=== PATIENT | female | born 1960 | race Caucasian/White ===

== ENCOUNTER 2020-08-25 15:37 | Inpatient (IN) | payer SELFPAY ==
[2020-08-25] MEDS ORDERED: GLYCOPYRROLATE 1 MG PO PRN (17:42)
[2020-08-25] MEDS ORDERED: Albuterol HFA 18 Gm Inhaler **OWN MED INH PRN (17:42)
[2020-08-25] MEDS ORDERED: Aluminum Hydroxide/Magnesium Hydroxide/Simethicone Susp 30 ML Cup PO PRN (17:42)
[2020-08-25] MEDS ORDERED: Simethicone 80 MG Tab.Chew PO PRN (17:42)
--- NOTE | 2020-08-25 17:48 | PCM.HP.2 ---
H&P History of Present Illness - General Date of Service: 08/25/20 Admit Problem/Dx: Admission Diagnosis/Problem Admission Diagnosis/Problem Liver mass - History of Present Illness Initial Comments - Free Text/Narative: Zenaida is a 60yoF with a PMH of MDD/EMIL, tobacco use disorder, chronic pain syndromes who is being admitted under comfort measures/hospice care. She was very recently seen for outpatient evaluation of right upper quadrant pain and workup did reveal a very large liver mass as well as multiple metastases. The patient deferred any diagnostic/interventional workup of this and instead preferred to pursue hospice care. She has been doing fairly well at home over the last couple weeks but over the last 2 days has developed increased pain as well as significant lower extremity swelling that has limited her ability to carry out her activities of daily living. I did receive a call from the hospice nurse earlier this morning asking about potential swing bed admission while we await's further plan of care in regard to placement. At this time Zenaida notes that the abdominal pain as well as the back pain are the worse. She does have some sharp stabbing pains in her lower extremities as well. Swelling of the bilateral lower extremities is new for her. She denies any itching at this time. Eating is a continued problem as she is able to take and very very small portions due to early satiety and feelings of gaseousness/nauseousness. She has been doing very well at keeping up on her fluids. She is quite concerned that this may be the turn for the worse and that this was earlier than anticipated although she is at ease with this thought. She is concerned that her siblings are very much against her decisions. She has 2 of them coming to see her at this time. - Related Data Allergies/Adverse Reactions: Allergies Allergy/AdvReac Type Severity Reaction Status Date / Time cat dander Allergy Hives Verified 08/25/20 14:54 cephalexin Allergy Facial Verified 08/25/20 14:54 Swelling metaxalone Allergy Hives Verified 08/25/20 14:54 shellfish derived Allergy Hives Verified 08/25/20 14:54 citalopram AdvReac Other Verified 08/25/20 14:56 iodine AdvReac Other Verified 08/25/20 14:56 venlafaxine AdvReac Lightheaded Verified 08/25/20 14:56 ness insecticides & pesticides Allergy Hives Uncoded 08/25/20 14:54 Home Medications: Home Meds Acetaminophen 500 mg PO Q4H PRN MDD 2000 grams per day 08/25/20 [History] Albuterol Sulfate [Albuterol Sulfate Hfa] 2 inh PO Q4H PRN 08/25/20 [History] Cetirizine HCl [Aller-Albino] 10 mg PO BEDTIME 08/25/20 [History] Clobetasol [Clobetasol Propionate 0.05%] 1 applic TOP BID 08/25/20 [History] Docusate Sodium/Sennosides [Senna Plus] 1 tab PO TID 08/25/20 [History] Glycopyrrolate 1 mg PO Q8H PRN 08/25/20 [History] HYDROmorphone [Dilaudid] 1 mg PO Q2H PRN 08/25/20 [History] HYDROmorphone [Dilaudid] 2 mg PO Q4H 08/25/20 [History] LORazepam [Ativan] 0.25 mg PO Q4H PRN 08/25/20 [History] Lidocaine 1 patch TOP Q12H 08/25/20 [History] Mag Hydrox/Aluminum Hyd/Simeth [Antacid Liquid] 10 ml PO ASDIRECTED PRN 08/25/20 [History] Melatonin 5 mg PO BEDTIME 08/25/20 [History] Omeprazole 20 mg PO BID 08/25/20 [History] Ondansetron [Zofran ODT] 4 mg PO QID PRN 08/25/20 [History] Simethicone [Gas-X] 125 mg PO ASDIRECTED PRN 08/25/20 [History] Zolpidem Tartrate [Ambien] 2.5 mg PO BEDTIME PRN 08/25/20 [History] dexAMETHasone [Decadron] 4 mg PO BID@08,14 08/25/20 [History] H&P Review of Systems - Review of Systems: Review Of Systems: See Below General: Reports: Weakness, Fatigue HEENT: Reports: Eye Pain Pulmonary: Reports: No Symptoms Cardiovascular: Reports: No Symptoms Gastrointestinal: Reports: Abdominal Pain, Decreased Appetite, Nausea Genitourinary: Reports: No Symptoms Musculoskeletal: Reports: Back Pain, Leg Pain, Joint Pain, Muscle Pain Skin: Reports: No Symptoms Psychiatric: Reports: No Symptoms Neurological: Reports: No Symptoms Hematologic/Lymphatic: Reports: No Symptoms Exam - Exam Exam: See Below - Vital Signs Vital Signs: Last Vital Signs Temp 98.8 F 08/25/20 16:20 Pulse 62 08/25/20 16:20 Resp BP 179/107 H 08/25/20 16:20 Pulse Ox 95 08/25/20 16:20 - Exam General: Alert, Oriented, Cooperative, Mild Distress HEENT: Conjunctiva Clear, EOMI, Mucosa Moist & [place] Neck: Supple, Trachea Midline Lungs: Normal Respiratory Effort Cardiovascular: Regular Rate, Regular Rhythm GI/Abdominal Exam: Tender Extremities: Pedal Edema (1+ to the bilateral LE) Skin: Warm, Dry, Intact Neuro Extensive - Mental Status: Alert, Oriented x3, Normal Mood/Affect Neuro Extensive - Motor, Sensory, Reflexes: CN II-XII Intact, Other (use of a walker for ambulation) Psychiatric: Alert, Normal Affect, Normal Mood Sepsis Event Note - Focused Exam Vital Signs: Vital Signs Temp Pulse BP Pulse Ox 08/25/20 16:20 98.8 F 62 179/107 H 95 *Q Meaningful Use (ADM) - VTE *Q VTE Anticoagulation Contraindications: Med/TX Not Indicated/Need - Problem List (1) Liver mass SNOMED Code(s): 663673552 ICD Code: R16.0 - HEPATOMEGALY, NOT ELSEWHERE CLASSIFIED Status: Acute Current Visit: Yes (2) Weakness SNOMED Code(s): 02507171 ICD Code: R53.1 - WEAKNESS Status: Acute Current Visit: Yes (3) End of life care SNOMED Code(s): 570398060, 457890711 ICD Code: Z51.5 - ENCOUNTER FOR PALLIATIVE CARE Status: Acute Current Visit: Yes Problem List Initiated/Reviewed/Updated: Yes Orders Last 24hrs: Active Orders 24 hr Category Date Time Status Patient Status [ADT] Routine ADT 08/25/20 17:38 Ordered May Shower [RC] ASDIRECTED Care 08/25/20 17:38 Ordered Oxygen Therapy [RC] PRN Care 08/25/20 17:38 Ordered Up ad Jerri [RC] ASDIRECTED Care 08/25/20 17:38 Ordered Regular Diet [DIET] Diet 08/25/20 Dinner Ordered Acetaminophen [Acetaminophen] Med 08/25/20 17:42 Ordered 500 mg PO Q4H PRN Albuterol Sulfate Med 08/25/20 17:42 Ordered 2 inh PO Q4H PRN Cetirizine HCl [Aller-Albino] Med 08/25/20 20:00 Ordered 10 mg PO BEDTIME Clobetasol [Clobetasol 0.05%] Med 08/25/20 20:00 Ordered 1 applic TOP BID Docusate Sodium/Sennosides [Senna Plus] Med 08/25/20 20:00 Ordered 1 tab PO TID Glycopyrrolate [Glycopyrrolate] Med 08/25/20 17:42 Ordered 1 mg PO Q8H PRN HYDROmorphone [Dilaudid] Med 08/25/20 17:42 Ordered 1 mg PO Q2H PRN HYDROmorphone [Dilaudid] Med 08/25/20 17:45 Ordered 2 mg PO Q4H LORazepam [Ativan] Med 08/25/20 17:42 Ordered 0.25 mg PO Q4H PRN Lidocaine [Lidocaine] Med 08/25/20 17:45 Ordered 1 patch TOP Q12H Mag Hydrox/Aluminum Hyd/Simeth [Antacid Liquid] Med 08/25/20 17:42 Ordered 10 ml PO ASDIRECTED PRN Melatonin [Melatonin] Med 08/25/20 20:00 Ordered 5 mg PO BEDTIME Omeprazole [Omeprazole] Med 08/25/20 20:00 Ordered 20 mg PO BID Ondansetron [Zofran ODT] Med 08/25/20 17:42 Ordered 4 mg PO QID PRN Simethicone [Gas-X] Med 08/25/20 17:42 Ordered 125 mg PO ASDIRECTED PRN Zolpidem Tartrate [Ambien] Med 08/25/20 17:42 Ordered 2.5 mg PO BEDTIME PRN dexAMETHasone [Decadron] Med 08/26/20 08:00 Ordered 4 mg PO BID@08,14 Anticoagulation Contraindications VTE [AST] Per Unit Oth 08/25/20 17:38 Ordered Routine Resuscitation Status Routine Resus Stat 08/25/20 17:38 Ordered Medication Orders Non-Formulary Medication (Acetaminophen [Acetaminophen]) 500 mg PO Q4H PRN PRN Reason: Pain Non-Formulary Medication (Albuterol Sulfate) 2 inh PO Q4H PRN PRN Reason: asthma Non-Formulary Medication (Cetirizine Hcl [Aller-Albino]) 10 mg PO BEDTIME [place] Non-Formulary Medication (Clobetasol [Clobetasol 0.05%]) 1 applic TOP BID [place] Non-Formulary Medication (Dexamethasone [Decadron]) 4 mg PO BID@08,14 [place] Non-Formulary Medication (Docusate Sodium/Sennosides [Senna Plus]) 1 tab PO TID [place] Non-Formulary Medication (Glycopyrrolate [Glycopyrrolate]) 1 mg PO Q8H PRN PRN Reason: secretions Non-Formulary Medication (Hydromorphone [Dilaudid]) 1 mg PO Q2H PRN PRN Reason: Pain Non-Formulary Medication (Hydromorphone [Dilaudid]) 2 mg PO Q4H KR[place] Non-Formulary Medication (Lidocaine [Lidocaine]) 1 patch TOP Q12H [place] Non-Formulary Medication (Lorazepam [Ativan]) 0.25 mg PO Q4H PRN PRN Reason: Anxiety Non-Formulary Medication (Mag Hydrox/Aluminum Hyd/Simeth [Antacid Liquid]) 10 ml PO ASDIRECTED PRN PRN Reason: GERD Non-Formulary Medication (Melatonin [Melatonin]) 5 mg PO BEDTIME [place] Non-Formulary Medication (Omeprazole [Omeprazole]) 20 mg PO BID [place] Non-Formulary Medication (Ondansetron [Zofran Odt]) 4 mg PO QID PRN PRN Reason: Nausea Non-Formulary Medication (Simethicone [Gas-X]) 125 mg PO ASDIRECTED PRN PRN Reason: GERD Non-Formulary Medication (Zolpidem Tartrate [Ambien]) 2.5 mg PO BEDTIME PRN PRN Reason: Sleep Assessment/Plan Comment:: Zenaida is a 60yoF who is admitted for ongoing cares in the setting of hospice care for a liver mass. We will continue hospice orders, if needed will escalate pain medication. Anticipate long-term placement for ongoing assistance with ADL's given sudden decline in status. Diet: regular as tolerated DVT: no prophylaxis CODE: DNR/DNI/Comfort Disposition: will plan to coordinate care with hospice in regards to ongoing t reatment plan. - Mortality Measure Prognosis:: Poor
[2020-08-25] MEDS: Melatonin 3 MG Tab PO SCH (19:49)
[2020-08-25] MEDS: Loratadine 10 MG Tab PO SCH (19:50)
[2020-08-25] MEDS: HYDROMORPHONE 2 MG PO SCH ×3 (19:52→23:55)
[2020-08-25] MEDS: Omeprazole 20 MG Cap.CR **OWN MED PO SCH (19:55)
[2020-08-26] MEDS: HYDROMORPHONE 2 MG PO SCH ×6 (03:57→23:53)
[2020-08-26] MEDS: HYDROMORPHONE 2 MG PO PRN ×2 (06:03→15:22)
[2020-08-26] MEDS: Omeprazole 20 MG Cap.CR **OWN MED PO SCH ×2 (06:04→17:52)
[2020-08-26] MEDS: DEXAMETHASONE 4 MG PO SCH ×2 (08:17→15:22)
[2020-08-26] MEDS: LIDOCAINE 4% TOP SCH ×2 (09:02→19:52)
[2020-08-26] MEDS: Loratadine 10 MG Tab PO SCH (19:47)
[2020-08-26] MEDS: Melatonin 3 MG Tab PO SCH (19:47)
[2020-08-26] MEDS ORDERED: Clobetasol 0.05% Crm 30 GM Tube TOP SCH (20:00)
[2020-08-27] MEDS: HYDROMORPHONE 2 MG PO SCH ×6 (03:38→23:15)
[2020-08-27] MEDS: HYDROMORPHONE 2 MG PO PRN ×2 (06:03→12:26)
[2020-08-27] MEDS: Omeprazole 20 MG Cap.CR **OWN MED PO SCH ×2 (06:10→17:13)
[2020-08-27] MEDS: LIDOCAINE 4% TOP SCH ×2 (07:42→20:06)
[2020-08-27] MEDS: DEXAMETHASONE 4 MG PO SCH ×2 (08:45→15:50)
[2020-08-27] MEDS: Loratadine 10 MG Tab PO SCH (20:06)
[2020-08-27] MEDS: Melatonin 3 MG Tab PO SCH (20:06)
[2020-08-28] MEDS: HYDROMORPHONE 2 MG PO PRN ×3 (01:50→22:53)
[2020-08-28] MEDS: HYDROMORPHONE 2 MG PO SCH ×5 (04:16→20:09)
[2020-08-28] MEDS: Omeprazole 20 MG Cap.CR **OWN MED PO SCH ×2 (06:43→16:53)
[2020-08-28] MEDS: DEXAMETHASONE 4 MG PO SCH ×2 (08:03→16:50)
[2020-08-28] MEDS: Lidocaine 4% 1 each Patch TOP SCH ×2 (08:04→20:08)
[2020-08-28] MEDS: Loratadine 10 MG Tab PO SCH (20:05)
[2020-08-28] MEDS: Melatonin 3 MG Tab PO SCH (20:05)
[2020-08-28] MEDS: ZOLPIDEM 5 MG PO PRN (20:47)
[2020-08-29] MEDS: HYDROMORPHONE 2 MG PO SCH ×7 (00:32→23:28)
[2020-08-29] MEDS: Omeprazole 20 MG Cap.CR **OWN MED PO SCH ×2 (06:27→16:03)
[2020-08-29] MEDS: Lidocaine 4% 1 each Patch TOP SCH ×2 (07:37→19:49)
[2020-08-29] MEDS: DEXAMETHASONE 4 MG PO SCH ×2 (07:38→13:00)
[2020-08-29] MEDS: HYDROMORPHONE 2 MG PO PRN (12:50)
[2020-08-29] MEDS: Loratadine 10 MG Tab PO SCH (19:49)
[2020-08-29] MEDS: Melatonin 3 MG Tab PO SCH (19:49)
[2020-08-29] MEDS: ZOLPIDEM 5 MG PO PRN (23:28)
[2020-08-30] MEDS: HYDROMORPHONE 2 MG PO PRN ×2 (02:16→14:00)
[2020-08-30] MEDS: HYDROMORPHONE 2 MG PO SCH ×6 (04:34→23:29)
[2020-08-30] MEDS: Omeprazole 20 MG Cap.CR **OWN MED PO SCH ×2 (06:55→17:35)
[2020-08-30] MEDS: Lidocaine 4% 1 each Patch TOP SCH ×2 (07:54→19:35)
[2020-08-30] MEDS: DEXAMETHASONE 4 MG PO SCH ×2 (07:54→14:01)
[2020-08-30] MEDS: Melatonin 3 MG Tab PO SCH (19:36)
[2020-08-30] MEDS: Loratadine 10 MG Tab PO SCH (19:36)
[2020-08-30] MEDS: ZOLPIDEM 5 MG PO PRN (23:29)
[2020-08-31] MEDS: HYDROMORPHONE 2 MG PO SCH ×6 (03:43→23:38)
[2020-08-31] MEDS: Omeprazole 20 MG Cap.CR **OWN MED PO SCH ×2 (06:12→16:25)
[2020-08-31] MEDS: HYDROMORPHONE 2 MG PO PRN (06:12)
[2020-08-31] MEDS: DEXAMETHASONE 4 MG PO SCH ×2 (09:16→17:02)
[2020-08-31] MEDS: Lidocaine 4% 1 each Patch TOP SCH ×2 (13:06→20:06)
[2020-08-31] MEDS: Loratadine 10 MG Tab PO SCH (20:07)
[2020-08-31] MEDS: Melatonin 3 MG Tab PO SCH (20:07)
[2020-08-31] MEDS: ZOLPIDEM 5 MG PO PRN (23:37)
[2020-09-01] MEDS: HYDROMORPHONE 2 MG PO PRN ×2 (02:01→06:08)
[2020-09-01] MEDS: HYDROMORPHONE 2 MG PO SCH ×6 (04:11→23:11)
[2020-09-01] MEDS: Omeprazole 20 MG Cap.CR PO SCH ×2 (06:07→16:12)
[2020-09-01] MEDS: DEXAMETHASONE 4 MG PO SCH ×2 (09:26→14:34)
[2020-09-01] MEDS: Lidocaine 4% 1 each Patch TOP SCH ×2 (09:27→19:46)
[2020-09-01] MEDS: Ondansetron 4 MG Tab.DIS **OWN MED PO PRN (18:37)
[2020-09-01] MEDS: ZOLPIDEM 5 MG PO PRN (19:45)
[2020-09-01] MEDS: Melatonin 3 MG Tab PO SCH (19:45)
[2020-09-01] MEDS: Loratadine 10 MG Tab PO SCH (19:46)
[2020-09-02] MEDS: HYDROMORPHONE 2 MG PO SCH ×6 (03:11→23:07)
[2020-09-02] MEDS: HYDROMORPHONE 2 MG PO PRN ×2 (06:03→09:21)
[2020-09-02] MEDS: LORazepam 0.5 MG Tab **OWN MED PO PRN ×2 (06:03→15:29)
[2020-09-02] MEDS: Omeprazole 20 MG Cap.CR PO SCH ×2 (06:03→16:31)
[2020-09-02] MEDS: DEXAMETHASONE 4 MG PO SCH ×2 (07:37→13:51)
[2020-09-02] MEDS: Lidocaine 4% 1 each Patch TOP SCH ×2 (07:38→20:52)
[2020-09-02] MEDS: Ondansetron 4 MG Tab.DIS **OWN MED PO PRN ×2 (09:21→13:50)
[2020-09-02] MEDS: Loratadine 10 MG Tab PO SCH (20:51)
[2020-09-02] MEDS: Melatonin 3 MG Tab PO SCH (20:51)
[2020-09-03] MEDS: HYDROMORPHONE 2 MG PO SCH ×6 (03:45→23:57)
[2020-09-03] MEDS: HYDROMORPHONE 2 MG PO PRN (06:07)
[2020-09-03] MEDS: Omeprazole 20 MG Cap.CR PO SCH ×2 (06:07→16:23)
[2020-09-03] MEDS: DEXAMETHASONE 4 MG PO SCH ×2 (08:33→13:26)
[2020-09-03] MEDS: Lidocaine 4% 1 each Patch TOP SCH ×2 (08:34→20:09)
[2020-09-03] MEDS: LORazepam 0.5 MG Tab **OWN MED PO PRN (13:21)
[2020-09-03] MEDS: Ondansetron 4 MG Tab.DIS **OWN MED PO PRN (13:21)
[2020-09-03] MEDS: Loratadine 10 MG Tab PO SCH (20:07)
[2020-09-03] MEDS: Melatonin 3 MG Tab PO SCH (20:07)
[2020-09-04] MEDS: Acetaminophen 500 MG Tab PO PRN (02:55)
[2020-09-04] MEDS: HYDROMORPHONE 2 MG PO PRN (02:56)
[2020-09-04] MEDS: HYDROMORPHONE 2 MG PO SCH ×5 (04:42→20:22)
[2020-09-04] MEDS: Omeprazole 20 MG Cap.CR PO SCH ×2 (06:35→17:20)
[2020-09-04] MEDS: Lidocaine 4% 1 each Patch TOP SCH ×2 (08:56→20:26)
[2020-09-04] MEDS: DEXAMETHASONE 4 MG PO SCH ×2 (08:59→14:14)
[2020-09-04] MEDS: Ondansetron 4 MG Tab.DIS **OWN MED PO PRN (10:48)
[2020-09-04] MEDS: Loratadine 10 MG Tab PO SCH (20:25)
[2020-09-04] MEDS: Melatonin 3 MG Tab PO SCH (20:26)
[2020-09-05] MEDS: HYDROMORPHONE 2 MG PO SCH ×7 (00:07→23:25)
[2020-09-05] MEDS: ZOLPIDEM 5 MG PO PRN ×2 (00:07→23:25)
[2020-09-05] MEDS: Acetaminophen 500 MG Tab PO PRN ×3 (04:02→23:28)
[2020-09-05] MEDS: Omeprazole 20 MG Cap.CR PO SCH ×2 (06:14→16:51)
[2020-09-05] MEDS: DEXAMETHASONE 4 MG PO SCH ×2 (08:34→14:29)
[2020-09-05] MEDS: Lidocaine 4% 1 each Patch TOP SCH ×2 (08:35→19:16)
[2020-09-05] MEDS: Melatonin 3 MG Tab PO SCH (19:19)
[2020-09-05] MEDS: Loratadine 10 MG Tab PO SCH (19:19)
[2020-09-06] MEDS: HYDROMORPHONE 2 MG PO SCH ×5 (03:48→20:34)
[2020-09-06] MEDS: Omeprazole 20 MG Cap.CR PO SCH ×2 (06:29→17:14)
[2020-09-06] MEDS: Lidocaine 4% 1 each Patch TOP SCH ×2 (07:56→20:37)
[2020-09-06] MEDS: DEXAMETHASONE 4 MG PO SCH ×2 (07:58→15:05)
[2020-09-06] MEDS: LORazepam 0.5 MG Tab **OWN MED PO PRN (12:29)
[2020-09-06] MEDS: Loratadine 10 MG Tab PO SCH (20:35)
[2020-09-06] MEDS: Melatonin 3 MG Tab PO SCH (20:35)
[2020-09-06] MEDS: Acetaminophen 500 MG Tab PO PRN (20:39)
[2020-09-07] MEDS: HYDROMORPHONE 2 MG PO SCH ×6 (00:10→19:46)
[2020-09-07] MEDS: Omeprazole 20 MG Cap.CR PO SCH ×2 (06:32→18:09)
[2020-09-07] MEDS: Lidocaine 4% 1 each Patch TOP SCH ×2 (08:36→19:47)
[2020-09-07] MEDS: DEXAMETHASONE 4 MG PO SCH ×2 (08:37→15:37)
[2020-09-07] MEDS: LORazepam 0.5 MG Tab **OWN MED PO PRN (12:37)
[2020-09-07] MEDS: Melatonin 3 MG Tab PO SCH (19:49)
[2020-09-07] MEDS: Loratadine 10 MG Tab PO SCH (19:49)
[2020-09-08] MEDS: ZOLPIDEM 5 MG PO PRN (01:22)
[2020-09-08] MEDS: HYDROMORPHONE 2 MG PO SCH ×6 (01:22→20:25)
[2020-09-08] MEDS: Omeprazole 20 MG Cap.CR PO SCH ×2 (06:38→16:42)
[2020-09-08] MEDS: HYDROMORPHONE 2 MG PO PRN ×3 (06:39→18:50)
[2020-09-08] MEDS: DEXAMETHASONE 4 MG PO SCH ×2 (07:49→13:09)
[2020-09-08] MEDS: Lidocaine 4% 1 each Patch TOP SCH (07:51)
[2020-09-08] MEDS: LORazepam 0.5 MG Tab **OWN MED PO PRN (18:50)
[2020-09-08] MEDS: Loratadine 10 MG Tab PO SCH (20:27)
[2020-09-08] MEDS: Melatonin 3 MG Tab PO SCH (20:27)
[2020-09-09] MEDS: Lidocaine 4% 1 each Patch TOP SCH ×3 (01:10→20:19)
[2020-09-09] MEDS: HYDROMORPHONE 2 MG PO SCH ×7 (03:06→21:27)
[2020-09-09] MEDS: Omeprazole 20 MG Cap.CR PO SCH ×2 (06:34→18:58)
[2020-09-09] MEDS: DEXAMETHASONE 4 MG PO SCH ×2 (08:57→14:58)
[2020-09-09] MEDS: HYDROMORPHONE 2 MG PO PRN (14:57)
[2020-09-09] MEDS: LORazepam 0.5 MG Tab **OWN MED PO PRN (15:00)
[2020-09-09] MEDS ORDERED: HYDROmorphone 2 MG Tab PO SCH (17:30)
[2020-09-09] MEDS: Melatonin 3 MG Tab PO SCH (20:19)
[2020-09-09] MEDS: Loratadine 10 MG Tab PO SCH (20:19)
[2020-09-10] MEDS: HYDROMORPHONE 2 MG PO SCH ×7 (01:19→23:36)
[2020-09-10] MEDS: Omeprazole 20 MG Cap.CR PO SCH ×2 (06:25→20:24)
[2020-09-10] MEDS: LORazepam 0.5 MG Tab **OWN MED PO PRN ×3 (09:08→23:35)
[2020-09-10] MEDS: DEXAMETHASONE 4 MG PO SCH ×2 (09:08→18:24)
[2020-09-10] MEDS: Lidocaine 4% 1 each Patch TOP SCH ×2 (10:21→19:38)
[2020-09-10] MEDS: Melatonin 3 MG Tab PO SCH (19:38)
[2020-09-10] MEDS: Loratadine 10 MG Tab PO SCH (19:38)
[2020-09-11] MEDS: HYDROMORPHONE 2 MG PO SCH ×6 (03:58→23:33)
[2020-09-11] MEDS: Omeprazole 20 MG Cap.CR PO SCH ×2 (06:48→16:08)
[2020-09-11] MEDS: HYDROMORPHONE 2 MG PO PRN (06:50)
[2020-09-11] MEDS: Lidocaine 4% 1 each Patch TOP SCH ×2 (07:52→20:39)
[2020-09-11] MEDS: DEXAMETHASONE 4 MG PO SCH ×2 (07:53→16:08)
[2020-09-11] MEDS: Melatonin 3 MG Tab PO SCH (20:29)
[2020-09-11] MEDS: Loratadine 10 MG Tab PO SCH (20:30)
[2020-09-11] MEDS: ZOLPIDEM 5 MG PO PRN (23:33)
[2020-09-12] MEDS: HYDROMORPHONE 2 MG PO SCH ×5 (04:44→20:01)
[2020-09-12] MEDS: Omeprazole 20 MG Cap.CR PO SCH ×4 (07:32→16:08)
[2020-09-12] MEDS: Lidocaine 4% 1 each Patch TOP SCH ×2 (08:37→20:03)
[2020-09-12] MEDS: DEXAMETHASONE 4 MG PO SCH ×2 (08:37→16:05)
[2020-09-12] MEDS: HYDROMORPHONE 2 MG PO PRN ×3 (10:53→18:34)
[2020-09-12] MEDS: LORazepam 0.5 MG Tab **OWN MED PO PRN ×2 (10:53→16:05)
[2020-09-12] MEDS: Melatonin 3 MG Tab PO SCH (19:59)
[2020-09-12] MEDS: Loratadine 10 MG Tab PO SCH (19:59)
[2020-09-12] MEDS: LORazepam 0.5 MG Tab **OWN MED PO SCH (20:01)
[2020-09-13] MEDS: HYDROMORPHONE 2 MG PO SCH ×5 (00:07→15:40)
[2020-09-13] MEDS: LORazepam 0.5 MG Tab **OWN MED PO SCH ×4 (00:07→12:22)
[2020-09-13] MEDS: HYDROMORPHONE 2 MG PO PRN ×4 (02:40→17:02)
[2020-09-13] MEDS: LORazepam 0.5 MG Tab **OWN MED PO PRN ×3 (02:40→14:31)
[2020-09-13] MEDS: Lidocaine 4% 1 each Patch TOP SCH (08:10)
[2020-09-13] MEDS: Omeprazole 20 MG Cap.CR PO SCH ×2 (08:10→16:46)
[2020-09-13] MEDS: DEXAMETHASONE 4 MG PO SCH ×2 (08:10→15:40)
[2020-09-13] MEDS ORDERED: LORazepam 0.5 MG Tab PO PRN (15:02)
[2020-09-13] MEDS ORDERED: LORazepam 0.5 MG Tab PO SCH (16:00)
[2020-09-13] MEDS ORDERED: HYDROmorphone 2 MG Tab PRN (19:45)
[2020-09-13] MEDS ORDERED: LORazepam 0.5 MG Tab PRN (19:45)
[2020-09-13] MEDS ORDERED: HYDROmorphone 2 MG Tab SCH (20:00)
[2020-09-13] MEDS: HYDROMORPHONE 2 MG SCH (20:45)
[2020-09-13] MEDS: ZOLPIDEM 5 MG PO PRN (20:46)
[2020-09-13] MEDS ORDERED: HYDROMORPHONE 2 MG PRN (20:46)
[2020-09-13] MEDS: Melatonin 3 MG Tab PO SCH (20:47)
[2020-09-13] MEDS: LORazepam 0.5 MG Tab SCH (20:48)
[2020-09-14] MEDS ORDERED: Acetaminophen 500 MG Tab PRN (00:19)
[2020-09-14] MEDS ORDERED: Zolpidem 5 MG Tab PRN (00:25)
[2020-09-14] MEDS ORDERED: Simethicone 80 MG Tab.Chew PRN (00:31)
[2020-09-14] MEDS ORDERED: Ondansetron 4 MG Tab.DIS PRN (00:32)
[2020-09-14] MEDS: HYDROMORPHONE 2 MG SCH ×6 (04:07→19:56)
[2020-09-14] MEDS: LORazepam 0.5 MG Tab SCH ×6 (04:08→19:56)
[2020-09-14] MEDS: Dexamethasone 4 MG Tab SCH ×2 (08:17→15:57)
[2020-09-14] MEDS: Glycopyrrolate 1 MG Tab PRN (15:57)
[2020-09-14] MEDS ORDERED: Melatonin 3 MG Tab SCH (20:00)
[2020-09-15] MEDS: HYDROMORPHONE 2 MG SCH ×2 (00:17→06:02)
[2020-09-15] MEDS: Glycopyrrolate 1 MG Tab PRN (00:18)
[2020-09-15] MEDS: LORazepam 0.5 MG Tab SCH ×2 (00:18→06:02)
--- NOTE | 2020-09-25 11:34 | PCM.DCSUM1 ---
Discharge Summary - Hospital Course Free Text/Narrative:: Zenaida is a 60yoF with a PMH of MDD/EMIL, tobacco use disorder, chronic pain syndromes who was admitted on 08/25/20 under comfort measures/hospice care in the setting of a large liver lesion. She deferred any diagnostic/interventional workup of this and instead preferred to pursue hospice care. She has been doing fairly well at home initially but due to increased pain and weakness was admitted for ongoing cares in conjunction with hospice. She on 09/15/20. - Discharge Data Discharge Date: 09/15/20 Discharge Disposition: 20 Condition: - Referral to Home Health Primary Care Physician: Nimo Loco MD - Discharge Diagnosis/Problem(s) (1) Liver mass SNOMED Code(s): 640627401 ICD Code: R16.0 - HEPATOMEGALY, NOT ELSEWHERE CLASSIFIED Status: Acute (2) Weakness SNOMED Code(s): 17822896 ICD Code: R53.1 - WEAKNESS Status: Acute (3) End of life care SNOMED Code(s): 646101272, 231957698 ICD Code: Z51.5 - ENCOUNTER FOR PALLIATIVE CARE Status: Acute - Discharge Plan Home Medications: Home Meds Acetaminophen 500 mg PO Q4H PRN MDD 2000 grams per day 08/25/20 [History] Albuterol Sulfate [Albuterol Sulfate Hfa] 2 inh PO Q4H PRN 08/25/20 [History] Cetirizine HCl [Aller-Albino] 10 mg PO BEDTIME 08/25/20 [History] Clobetasol [Clobetasol Propionate 0.05%] 1 applic TOP BID 08/25/20 [History] Docusate Sodium/Sennosides [Senna Plus] 1 tab PO TID 08/25/20 [History] Glycopyrrolate 1 mg PO Q8H PRN 08/25/20 [History] HYDROmorphone [Dilaudid] 1 mg PO Q2H PRN 08/25/20 [History] HYDROmorphone [Dilaudid] 2 mg PO Q4H 08/25/20 [History] LORazepam [Ativan] 0.25 mg PO Q4H PRN 08/25/20 [History] Lidocaine 1 patch TOP Q12H 08/25/20 [History] Mag Hydrox/Aluminum Hyd/Simeth [Antacid Liquid] 10 ml PO ASDIRECTED PRN 08/25/20 [History] Melatonin 5 mg PO BEDTIME 08/25/20 [History] Omeprazole 20 mg PO BID 08/25/20 [History] Ondansetron [Zofran ODT] 4 mg PO QID PRN 08/25/20 [History] Simethicone [Gas-X] 125 mg PO ASDIRECTED PRN 08/25/20 [History] Zolpidem Tartrate [Ambien] 2.5 mg PO BEDTIME PRN 08/25/20 [History] dexAMETHasone [Decadron] 4 mg PO BID@08,14 08/25/20 [History] - Discharge Summary/Plan Comment DC Time >30 min.: No - Patient Data Vitals - Most Recent: Last Vital Signs Temp 98.8 F 08/25/20 16:20 Pulse 62 08/25/20 16:20 Resp BP 179/107 H 08/25/20 16:20 Pulse Ox 95 08/25/20 16:20 Weight - Most Recent: 170 lb Med Orders - Current: Current Medications Discontinued Medications Acetaminophen (Acetaminophen 500 Mg Tab) 500 mg PO Q4H PRN PRN Reason: Pain Last Admin: 09/06/20 20:39 Dose: 500 mg Documented by: Acetaminophen (Acetaminophen 500 Mg Tab) 500 mg .XX Q4H PRN PRN Reason: Pain Al Hydroxide/Mg Hydroxide (Aluminum Hydroxide/Magnesium Hydroxide/Simethicone Susp 30 Ml Cup) 10 ml PO Q4H PRN PRN Reason: GERD Last Admin: 09/02/20 15:40 Dose: 10 ml Documented by: Albuterol (Albuterol Hfa 18 Gm Inhaler Own Med) 0 gm INH Q4H PRN PRN Reason: asthma Clobetasol Propionate (Clobetasol 0.05% Crm 30 Gm Tube) 0 gm TOP BID [facility] Dexamethasone (Dexamethasone 4 Mg Tab Own Med) 4 mg PO BID@08,14 [facility] Last Admin: 09/11/20 16:08 Dose: 4 mg Documented by: Dexamethasone (Dexamethasone 4 Mg Tab Own Med) 4 mg PO 0800,1600 [facility] Last Admin: 09/13/20 15:40 Dose: Not Given Documented by: Dexamethasone (Dexamethasone 4 Mg Tab) 4 mg .XX 0800,1600 [facility] Last Admin: 09/14/20 15:57 Dose: 4 mg Documented by: Glycopyrrolate (Glycopyrrolate 1 Mg Tab Own Med) 1 mg PO Q8H PRN PRN Reason: secretions Glycopyrrolate (Glycopyrrolate 1 Mg Tab) 1 mg .XX Q8H PRN PRN Reason: secretions Last Admin: 09/15/20 00:18 Dose: 1 mg Documented by: Hydromorphone HCl (Hydromorphone 2 Mg Tab Own Med) 1 mg PO Q2H PRN PRN Reason: Pain Last Admin: 09/13/20 17:02 Dose: 1 mg Documented by: Hydromorphone HCl (Hydromorphone 2 Mg Tab Own Med) 2 mg PO Q4H [facility] Last Admin: 08/25/20 22:00 Dose: Not Given Documented by: Hydromorphone HCl (Hydromorphone 2 Mg Tab Own Med) 2 mg PO Q4H [facility] Last Admin: 09/09/20 17:30 Dose: Not Given Documented by: Hydromorphone HCl (Hydromorphone 2 Mg Tab) 3 mg PO Q4H [facility] Last Admin: 09/09/20 18:48 Dose: Not Given Documented by: Hydromorphone HCl (Hydromorphone 2 Mg Tab (Own Supply)) 3 mg PO Q4H [facility] Last Admin: 09/13/20 15:40 Dose: 3 mg Documented by: Hydromorphone HCl (Hydromorphone 2 Mg Tab) 4 mg .XX Q4H [facility] Last Admin: 09/13/20 21:12 Dose: Not Given Documented by: Hydromorphone HCl (Hydromorphone 2 Mg Tab) 2 mg .XX Q2H PRN PRN Reason: Pain Hydromorphone HCl (Hydromorphone 2 Mg Tab Own Med) 4 mg .XX Q4H [facility] Last Admin: 09/15/20 06:02 Dose: Not Given Documented by: Hydromorphone HCl (Hydromorphone 2 Mg Tab Own Med) 2 mg .XX Q2H PRN PRN Reason: Pain Last Admin: 09/14/20 12:00 Dose: 2 mg Documented by: Lidocaine (Lidocaine 4% 1 Each Patch Own Med) 1 each TOP Q12H [facility] Stop: 08/27/20 23:00 Last Admin: 08/27/20 20:06 Dose: Not Given Documented by: Lidocaine (Lidocaine 4% 1 Each Patch) 1 each TOP BID [facility] Last Admin: 09/13/20 08:10 Dose: Not Given Documented by: Loratadine (Loratadine 10 Mg Tab) 10 mg PO BEDTIME [facility] Last Admin: 09/12/20 19:59 Dose: 10 mg Documented by: Lorazepam (Lorazepam 0.5 Mg Tab Own Med) 0.25 mg PO Q4H PRN PRN Reason: Anxiety Last Admin: 09/13/20 14:31 Dose: 0.25 mg Documented by: Lorazepam (Lorazepam 0.5 Mg Tab Own Med) 0.25 mg PO Q4H [facility] Last Admin: 09/13/20 12:22 Dose: 0.25 mg Documented by: Lorazepam (Lorazepam 0.5 Mg Tab) 0.25 mg PO Q4H [facility] Last Admin: 09/13/20 15:39 Dose: 0.25 mg Documented by: Lorazepam (Lorazepam 0.5 Mg Tab) 0.25 mg PO Q4H PRN PRN Reason: Anxiety Last Admin: 09/13/20 18:35 Dose: 0.25 mg Documented by: Lorazepam (Lorazepam 0.5 Mg Tab) 0.5 mg .XX Q4H PRN PRN Reason: Anxiety Lorazepam (Lorazepam 0.5 Mg Tab) 0.5 mg .XX Q4H [facility] Last Admin: 09/15/20 06:02 Dose: Not Given Documented by: Melatonin (Melatonin 3 Mg Tab) 6 mg PO BEDTIME [facility] Last Admin: 09/13/20 20:47 Dose: 6 mg Documented by: Melatonin (Melatonin 3 Mg Tab) 6 mg .XX BEDTIME [facility] Last Admin: 09/14/20 20:05 Dose: Not Given Documented by: Miscellaneous Information (Remove Patch Lidocaine) 1 ea TRDERM 1999 [facility] Last Admin: 08/25/20 19:56 Dose: Not Given Documented by: Omeprazole (Omeprazole 20 Mg Cap.Cr Own Med) 20 mg PO 0700,1700 [facility] Last Admin: 08/26/20 06:04 Dose: 20 mg Documented by: Omeprazole (Omeprazole 20 Mg Cap.Cr Own Med) 20 mg PO BID@0700,1700 [facility] Stop: 08/31/20 17:01 Last Admin: 08/31/20 16:25 Dose: 20 mg Documented by: Omeprazole (Omeprazole 20 Mg Cap.Cr) 20 mg PO BID@0700,1700 [facility] Last Admin: 09/12/20 07:32 Dose: Not Given Documented by: Omeprazole (Omeprazole 20 Mg Cap.Cr) 20 mg PO BID@0800,1700 [facility] Last Admin: 09/13/20 16:46 Dose: Not Given Documented by: Ondansetron HCl (Ondansetron 4 Mg Tab.Dis Own Med) 4 mg PO QID PRN PRN Reason: Nausea Last Admin: 09/04/20 10:48 Dose: 4 mg Documented by: Ondansetron HCl (Ondansetron 4 Mg Tab.Dis) 4 mg .XX QID PRN PRN Reason: Nausea Hydromorphone 2 Mg (Tab *Pt Own Med*) 0 each PO Q4H [facility] Last Admin: 09/10/20 09:05 Dose: 1 each Documented by: Senna/Docusate Sodium (Docusate Sodium/Sennosides 50-8.6 Mg Tab) 1 tab PO TID [facility] Last Admin: 09/13/20 11:42 Dose: Not Given Documented by: Senna/Docusate Sodium (Docusate Sodium/Sennosides 50-8.6 Mg Tab) 1 tab PO DAILY PRN PRN Reason: Constipation Simethicone (Simethicone 80 Mg Tab.Chew) 120 mg PO QID PRN PRN Reason: GERD Last Admin: 08/29/20 03:43 Dose: 120 mg Documented by: Simethicone (Simethicone 80 Mg Tab.Chew) 120 mg .XX QID PRN PRN Reason: GERD Zolpidem Tartrate (Zolpidem 5 Mg Tab Own Med) 2.5 mg PO BEDTIME PRN PRN Reason: Sleep Stop: 09/14/20 00:25 Last Admin: 09/13/20 20:46 Dose: 2.5 mg Documented by: Zolpidem Tartrate (Zolpidem 5 Mg Tab) 2.5 mg .XX BEDTIME PRN PRN Reason: Sleep *Q Meaningful Use (DIS) - VTE *Q VTE Anticoagulation Contraindications: Med/TX Not Indicated/Need
== END 2020-09-15 01:45 | disposition expired | DRG 951 ==
LOC: VM.MS 15:37
PROVIDERS: ADMIT Family Medicine; ATTEND Family Medicine
DX: Z51.5 Encounter for palliative care (principal); C22.8 Malignant neoplasm of liver, primary, unspecified as to type; C79.9 Secondary malignant neoplasm of unspecified site; F41.1 Generalized anxiety disorder; F17.210 Nicotine dependence, cigarettes, uncomplicated; R16.0 Hepatomegaly, not elsewhere classified; G89.4 Chronic pain syndrome; Z66 Do not resuscitate; Z91.013 Allergy to seafood; Z88.1 Allergy status to other antibiotic agents; Z88.8 Allergy status to other drugs, medicaments and biological substances; Z91.09 Other allergy status, other than to drugs and biological substances; Z79.899 Other long term (current) drug therapy; F32.9 Major depressive disorder, single episode, unspecified; R53.1 Weakness; K21.9 Gastro-esophageal reflux disease without esophagitis; J45.909 Unspecified asthma, uncomplicated; R68.81 Early satiety; M79.89 Other specified soft tissue disorders
CPT/HCPCS: 51702; A9270-GY; J8540